=== PATIENT | female | born 1960 | race Caucasian/White ===

== ENCOUNTER → 2022-08-23 10:45 | Outpatient (BNVA) | payer OTHER, SELFPAY | PROVIDERS: PCP Internal Medicine; Visit Provider Physician Assistant Surgical | DX: Z13.89 Encounter for screening for other disorder (principal) ==

== ENCOUNTER → 2022-08-30 13:21 | Outpatient (BNVA) | payer OTHER, SELFPAY | PROVIDERS: PCP Internal Medicine; Visit Provider Physician Assistant Surgical | DX: Z13.89 Encounter for screening for other disorder (principal) ==

== ENCOUNTER 2022-09-02 08:29 | Outpatient (REF) | payer OTHER, SELFPAY ==
--- NOTE | ~2022-09-02 | XR_ITS ---
EXAMINATION: XR CHEST CLINICAL INFORMATION: Reason for Exam E66.01 - Morbid (severe) obesity due to excess calories COMPARISON: Chest radiograph 09/02/2022 TECHNIQUE: 2 views of the chest FINDINGS: Clear lungs. No pneumothorax or pleural effusion. Unchanged cardiomediastinal silhouette. XR/XR chest 2V IMPRESSION: * Clear lungs.
--- NOTE | 2022-09-02 08:38 | ECG_ITS ---
Test Reason : E66.01 Morbid Obesity Blood Pressure : / mmHG Vent. Rate : 083 BPM Atrial Rate : 000 BPM P-R Int : 000 ms QRS Dur : 088 ms QT Int : 376 ms P-R-T Axes : 000 033 000 degrees QTc Int : 441 ms Atrial fibrillation Abnormal ECG When compared with ECG of 24-APR-2019 11:22, No significant change was found Referred By: Uriel Guillen Electronically Signed By:ANANYA KERN MD
[2022-09-02 08:48] LABS: MANUAL DIFF FLAG NO
[2022-09-02 09:49] LABS: Basophils Absolute Auto 0.1 X10*3/uL (0.0-0.2); Basophils Percent Auto 0.9 % (0-2); Eosinophils Absolute Auto 0.1 X10*3/uL (0.0-0.4); Eosinophils Percent Auto 0.9 % (0-4); Hemoglobin 15.3 g/dl (12.0-16.0); Imm Gran Abs Auto 0.01 X10*3/uL (0.00-0.03); Imm Gran Pct Auto 0.2 % (0.0-0.4); Lymphocytes Absolute Auto 1.6 X10*3/uL (1.2-4.9); Mean Corpuscular Hemoglobin 31.4 pg (27.0-33.0); Mean Corpuscular Volume 92.2 fL (80.0-98.0); Mean Platelet Volume 9.4 fL (9.4-12.3); Monocytes Absolute Auto 0.4 X10*3/uL (0.1-1.2); Monocytes Percent Auto 7.3 % (2-11); Neutrophils Absolute Auto 3.7 x10*3/uL (2.0-8.3); Neutrophils Percent Auto 63.7 % (45-73); Platelet Count 272 X10*3/uL (160-400); Red Blood Count 4.88 X10*6/uL (4.20-5.50); Red Cell Distribution Width 12.2 % (11.0-16.0); White Blood Count 5.7 X10*3/uL (4.8-10.8)
[2022-09-02 10:49] LABS: Estimated Average Glucose 117 mg/dL; Hemoglobin A1C 150.1981 umol/L; Hemoglobin A1c % 5.7 %
[2022-09-02 11:10] LABS: Alanine Aminotransferase 37 U/L (0-31); Albumin Level 4.2 g/dL (3.5-5.0); Alkaline Phosphatase 81 U/L (39-117); Anion Gap 16 (12-20); Aspartate Amino Transferase 31 U/L (5-31); Bilirubin Total 0.7 mg/dL (0.0-1.0); Blood Urea Nitrogen 17 mg/dL (9-16); C Reactive Protein 0.27 mg/dL (< or = 0.50); Calcium 9.3 mg/dL (8.4-10.2); Carbon Dioxide 23 mmol/L (22-29); Chloride 108 mmol/L (96-108); Cholesterol 166 mg/dL; Estimated Glomerular Filt Rate > 60; Glucose Random 96 mg/dL (60-115); HDL Cholesterol 34 mg/dL; Iron 130 mcg/dL (30-160); LDL Cholesterol Calculated 112 mg/dl; Percent Iron Saturation 36 % (15-50); Potassium 4.5 mmol/L (3.3-5.1); Sodium 142 mmol/L (135-145); Total Iron Binding Capacity 361 mcg/dL (228-428); Triglycerides 103 mg/dL; Unsaturated Iron Binding 231 ug/dL
[2022-09-02 11:42] LABS: Ferritin 62 ng/mL (10-250); Folate 15.3 ng/mL (> or = 4.0); Insulin 8 uU/mL (2-29); TSH reflex Free T4 0.82 uIU/mL (0.32-4.0); Vitamin B12 > 2000 pg/mL (200-900); Vitamin D 25-OH Total 43.4 ng/mL (>30)
[2022-09-06 13:14] LABS: Calcium (PTHI) 9.5 mg/dL (8.6-10.4); PTHI 69 pg/mL (16-77)
[2022-09-06 21:19] LABS: Zinc 67 mcg/dL (60-130)
[2022-09-09 03:57] LABS: Vitamin A 46 mcg/dL (38-98)
[2022-09-11 15:38] LABS: Vitamin B1 8 nmol/L (8-30)
== END 2022-09-02 08:30 | disposition home or self-care (01) ==
LOC: HO.XRAY 08:29
PROVIDERS: PCP Internal Medicine; Visit Provider Physician Assistant Surgical
DX: E66.01 Morbid (severe) obesity due to excess calories (principal); I10 Essential (primary) hypertension
CPT/HCPCS: 36415; 71046; 80053; 80061; 82306; 82607; 82728; 82746; 83036; 83525; 83540; 83970; 84425; 84443; 84590; 84630; 85025; 86140; 93005

== ENCOUNTER → 2022-09-06 09:43 | Outpatient (BNVA) | payer OTHER, SELFPAY | PROVIDERS: PCP Internal Medicine; Visit Provider Physician Assistant Surgical | DX: Z13.89 Encounter for screening for other disorder (principal) ==

== ENCOUNTER → 2022-09-30 10:09 | Outpatient (BNVA) | payer OTHER, SELFPAY | PROVIDERS: PCP Internal Medicine; Visit Provider Dietitian, Registered | DX: E66.01 Morbid (severe) obesity due to excess calories (principal) | CPT/HCPCS: 97802 ==

== ENCOUNTER → 2022-10-04 08:26 | Outpatient (BNVA) | payer OTHER, SELFPAY | PROVIDERS: PCP Internal Medicine; Visit Provider Physician Assistant Surgical | DX: Z13.89 Encounter for screening for other disorder (principal) ==

== ENCOUNTER 2022-10-04 16:47 | Outpatient (REF) | payer OTHER, SELFPAY ==
[2022-10-07 15:06] LABS: H Pylori Breath Test Negative (Negative)
== END 2022-10-04 16:48 | disposition home or self-care (01) ==
LOC: HO.LNP 16:47
PROVIDERS: Visit Provider Physician Assistant Surgical
DX: E66.01 Morbid (severe) obesity due to excess calories (principal); I10 Essential (primary) hypertension; Z11.0 Encounter for screening for intestinal infectious diseases
CPT/HCPCS: 83013

== ENCOUNTER → 2022-10-06 13:19 | Outpatient (BNVA) | payer OTHER, SELFPAY | PROVIDERS: PCP Internal Medicine; Visit Provider Counselor Mental Health ==

== ENCOUNTER 2022-10-27 07:47 | Outpatient (REF) | payer OTHER, SELFPAY ==
--- NOTE | ~2022-10-27 | US_ITS ---
EXAMINATION: US COMPLETE ABDOMEN WITH LIVER ELASTOGRAPHY CLINICAL INFORMATION: Moderate/severe obesity COMPARISON: None available. TECHNIQUE: Real-time imaging of the abdominal viscera. Noninvasive ultrasound liver fibrosis assessment is performed using Jose ElastPQ point quantification shear wave elastography (2D-SWE) with a C5-2 MHz transducer. Multiple elastography samples are obtained. FINDINGS: PANCREAS: Normal. The visualized pancreatic head and body are normal in appearance. The remainder of the pancreas is obscured from visualization by the overlying bowel gas. ABDOMINAL AORTA: The proximal, middle, and distal aortic segments are normal in caliber. INFERIOR VENA CAVA: Visualized portions are normal. LIVER: The liver demonstrates normal size, contour and increased echogenicity. No focal lesion or intrahepatic biliary duct dilatation. The right lobe measures 17.8 cm in length. The left lobe measures 12.0 cm in length. Portal flow is hepatopedal Shear wave liver elastography median stiffness is 1.17 m/s (reference: normal median stiffness is 1.3 m/s or less). IQR/median stiffness to assess sampling precision is 0.07 (reference: good quality data set is IQR/median stiffness of 0.15 or less). GALLBLADDER: Normal. The gallbladder is physiologically distended without evidence of stones, sludge, polyps, wall thickening or pericholecystic fluid. COMMON BILE DUCT: Normal in caliber measuring 0.23 cm in diameter. RIGHT KIDNEY: No hydronephrosis. No renal calculi or focal parenchymal lesions. The kidney measures 12.7 cm in maximum dimension. There is an upper pole echogenic lesion measuring 1.6 x 1.4 x 1.0 cm suggestive of developing 1. A second echogenic lesion in the lower pole measures 0.5 x 0.4 x 0.5 cm. 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 LEFT KIDNEY: . No hydronephrosis. No renal calculi visualized. There are 2 echogenic lesions consistent with angiomyolipoma. Lower pole lesion measures 1.6 x 1.0 cm. An upper pole lesion measures 1.4 x 1.7 x 0.8 cm. The kidney measures 13.1 cm in maximum dimension. SPLEEN: Normal. The spleen measures 10.3 cm in maximum dimension. FREE FLUID: None. US/US abdomen comp w elastography IMPRESSION: 1. Bilateral renal angiomyolipoma. No echogenic stones or hydronephrosis. Mild hepatic steatosis. No focal lesion seen. 2. Liver elastography: Median liver stiffness measures 1.17 m/s suggestive of high probably normal. REFERENCE: Society of Radiologists in Ultrasound Liver Stiffness Thresholds (2020): LIVER STIFFNESS THRESHOLDS: *Liver Stiffness equal or less than 1.3 m/s: High probability of being normal. *Liver Stiffness less than 1.7 m/s: In the absence of other known clinical signs, rules out compensated advanced chronic liver disease. *Liver Stiffness 1.7-2.1 m/s: Suggestive of compensated advanced chronic liver disease but need further test for confirmation. *Liver Stiffness over 2.1 m/s: Rules in compensated advanced chronic liver disease. *Liver Stiffness over 2.4 m/s: Suggestive of clinically significant portal hypertension. QUALITY OF DATA SET: *IQR/Median value equal or less than 0.15 implies a quality data set. *IQR/Median value over 0.15 implies a poor quality data set. SIGNIFICANT CHANGE FROM PRIOR EXAM: Significant change if liver stiffness measurement is 10% or greater from prior exam. OTHER CONSIDERATIONS: The stage of liver fibrosis may be overestimated in the setting of acute hepatitis, liver inflammation, elevated liver function tests, hepatic vascular congestion, obstructive cholestasis, non-fasting state, and infiltrative diseases such as amyloidosis and lymphoma. In some patients with NAFLD, the liver stiffness thresholds for compensated advanced chronic liver disease may be lower. In causes other than viral hepatitis and NAFLD, liver stiffness thresholds are not well established.
--- NOTE | ~2022-10-27 | FL_ITS ---
EXAMINATION: XR FLUOROSCOPY UPPER GI WITH AIR CLINICAL INFORMATION: Morbid obesity. COMPARISON: None available. TECHNIQUE: Air-contrast upper GI examination. FINDINGS: There is normal elevation of the soft palate while saying candy. There is normal apposition of the vocal cords while saying E. Patient swallowed a combination of thin and thick barium as well as half-inch diameter barium tablet without difficulty. No nasopharyngeal reflux or tracheal aspiration identified. There is normal esophageal motility without persistent stricture or mucosal abnormality. No hiatal hernia was seen. There is normal motility. There was noted to be spontaneous gastroesophageal reflux to the level of the soledad which cleared rapidly. The stomach demonstrates normal distensibility without abnormal mass or ulceration. There was no delay in gastric emptying. The duodenal bulb and sweep appeared unremarkable. FLUOROSCOPY TIME: 1.5 minutes NUMBER OF IMAGES: 15 22.199 Gy-cm2 (flores-centimeter squared) FL/FL upper GI w air IMPRESSION: Essentially unremarkable air-contrast upper GI examination other than for transient spontaneous gastroesophageal reflux.
== END 2022-10-27 07:48 | disposition home or self-care (01) ==
LOC: HO.US 07:47
PROVIDERS: PCP Internal Medicine; Visit Provider Physician Assistant Surgical
DX: Z01.818 Encounter for other preprocedural examination (principal); E66.01 Morbid (severe) obesity due to excess calories; I10 Essential (primary) hypertension; K21.9 Gastro-esophageal reflux disease without esophagitis
CPT/HCPCS: 74246; 76705; 76981

== ENCOUNTER → 2022-11-10 08:13 | Outpatient (BNVA) | payer OTHER, SELFPAY | PROVIDERS: PCP Internal Medicine; Visit Provider Surgery | DX: Z13.89 Encounter for screening for other disorder (principal) ==

== ENCOUNTER → 2022-11-12 12:45 | Outpatient (BNVA) | payer OTHER, SELFPAY | PROVIDERS: PCP Internal Medicine; Visit Provider Surgery | DX: Z13.89 Encounter for screening for other disorder (principal) ==

== ENCOUNTER 2022-11-16 09:56 | Inpatient (IN) | payer OTHER, SELFPAY ==
[2022-11-10 15:39] VITALS: BMI 48.5
[2022-11-12 12:47] LABS: MANUAL DIFF FLAG NO
[2022-11-12 13:19] LABS: Estimated Average Glucose 111 mg/dL; Hemoglobin A1C 151.9529 umol/L; Hemoglobin A1c % 5.5 %
[2022-11-12 13:21] LABS: Basophils Percent Auto 0.8 % (0-2); Eosinophils Percent Auto 0.8 % (0-4); Hematocrit 46.3 % (37.0-47.0); Hemoglobin 15.6 g/dl (12.0-16.0); Imm Gran Abs Auto 0.02 X10*3/uL (0.00-0.03); Imm Gran Pct Auto 0.4 % (0.0-0.4); Lymphocytes Absolute Auto 1.5 X10*3/uL (1.2-4.9); Lymphocytes Percent Auto 28.1 % (20-40); Mean Corpuscular HGB Conc 33.7 g/dl (31.0-35.0); Mean Corpuscular Hemoglobin 31.6 pg (27.0-33.0); Mean Corpuscular Volume 93.7 fL (80.0-98.0); Mean Platelet Volume 9.7 fL (9.4-12.3); Monocytes Absolute Auto 0.4 X10*3/uL (0.1-1.2); Monocytes Percent Auto 6.8 % (2-11); Neutrophils Absolute Auto 3.4 x10*3/uL (2.0-8.3); Neutrophils Percent Auto 63.1 % (45-73); Platelet Count 244 X10*3/uL (160-400); Red Blood Count 4.94 X10*6/uL (4.20-5.50); White Blood Count 5.3 X10*3/uL (4.8-10.8)
[2022-11-12 13:24] LABS: INTERNATIONAL NORM RATIO 1.1 (0.9-1.1); Prothrombin Time 12.7 SEC (10.0-13.1)
[2022-11-12 13:26] LABS: Partial Thromboplastin Time 36.3 SEC (26.0-36.4)
[2022-11-12 13:42] LABS: Alanine Aminotransferase 26 U/L (0-31); Alkaline Phosphatase 77 U/L (39-117); Anion Gap 12 (12-20); Aspartate Amino Transferase 24 U/L (5-31); Bilirubin Total 0.7 mg/dL (0.0-1.0); Blood Urea Nitrogen 20 mg/dL (9-16); C Reactive Protein 0.24 mg/dL (< or = 0.50); Calcium 9.5 mg/dL (8.4-10.2); Carbon Dioxide 25 mmol/L (22-29); Chloride 109 mmol/L (96-108); Cholesterol 139 mg/dL; Creatinine Clr Calc Pharmacy 77.3; Estimated Glomerular Filt Rate > 60; Glucose Random 90 mg/dL (60-115); HDL Cholesterol 30 mg/dL; LDL Cholesterol Calculated 93 mg/dl; Potassium 4.5 mmol/L (3.3-5.1); Sodium 141 mmol/L (135-145); Total Protein 6.7 g/dL (6.5-8.0); Triglycerides 81 mg/dL
[2022-11-12 13:58] LABS: Insulin 6 uU/mL (2-29); TSH reflex Free T4 0.89 uIU/mL (0.32-4.0)
--- NOTE | 2022-11-15 10:48 | P.CONAN_ITS ---
HPI - Anesthesia Eval Consult details Narrative: 62yo F for Gastrectomy Sleeve EGD,poss Diaphragmatic hernia, poss ventral hernia,poss open Cardiac cleared Afib, no anticoag (asa only). Arixtra preop by bariatrics [facility] Active Problems Active Problems: All Active Problems (Updated 11/10/22 @ 15:37 by Kianna Manjarrez, RN) Morbid obesity (Acute) ANALI (obstructive sleep apnea) (Acute) HTN (hypertension) (Acute) Atrial fibrillation (Acute) Adjustment disorder, unspecified (Acute) Abnormal EKG (Acute) Past Medical History Medical History (Updated 11/10/22 @ 15:37 by Kianna Manjarrez, MICHAEL) Abnormal EKG Atrial fibrillation Dilation of thoracic aorta Fatty liver On beta julia at home ANALI on CPAP Family History Family History Mother No problems noted. Father Pacemaker Son No problems noted. Surgical History Surgical History History of carpal tunnel release of both wrists History of lumpectomy of right breast Hx of section Hx of colonoscopy Hx of tooth extraction Social History Social History Are you a primary pediatric care coordinator to a significant other at home: No Do you presently have visiting nurse or other home services: No Alcohol intake: never Patient Tobacco Use Status: Former Tobacco user Quit Date: teenager Tobacco use type: Cigarette Use of substances other than those prescribed or required for medical reasons: No Have you been hit, kicked, punched, or otherwise hurt by someone within the past year? If so, by whom?: No Are you DNR?: No Advance Directives: No Advance Directives Information Provided: Yes (ARSLAN Mandujano) Advance Directives on File: No Recently lost weight without trying: No How much weight loss: 34pounds or more Eating poorly because of decreased appetite: No Nutrition screen score: 4 Nutrition Risks: No Nutritional Risk Patient : No Poor oral hygiene: No (Intact teeth) Meds Allergies Allergy/AdvReac Type Severity Reaction Status Date / Time No Known Allergies Allergy Verified 11/10/22 13:25 Home Medications Medication Instructions Recorded Confirmed Last Taken Type CPAP (CPAP Machine/Device) 08/23/22 11/10/22 Unknown History aspirin 325 mg tablet 324 mg PO DAILY 08/23/22 11/10/22 11/10/22 History cyanocobalamin (vitamin B-12) 1,000 mcg PO DAILY 08/23/22 11/10/22 11/15/22 History 1,000 mcg capsule metoprolol tartrate 25 mg tablet 25 mg PO DAILY 08/23/22 11/10/22 11/16/22 History pravastatin 40 mg tablet 40 mg PO DAILY 08/23/22 11/10/22 11/15/22 History cholecalciferol (vitamin D3) 50 50 mcg PO 3XW 10/04/22 11/10/22 11/15/22 History mcg (2,000 unit) capsule Exam Exam Date and Time: November 15, 2022 1048 Height,Weight and Vital Signs: Height 5 ft 1 in Weight 116.573 kg Pertinent Lab Results Pertinent Lab Results: Laboratory Tests 11/12/22 11/12/22 11/12/22 12:40 12:45 12:45 WBC 5.3 RBC 4.94 Hgb 15.6 Hct 46.3 MCV 93.7 MCH 31.6 MCHC 33.7 RDW 13.0 Plt Count 244 MPV 9.7 Immature Gran % (Auto) 0.4 Neut % (Auto) 63.1 Lymph % (Auto) 28.1 [place] % (Auto) 6.8 Eos % (Auto) 0.8 Baso % (Auto) 0.8 Lymph # (Auto) 1.5 [place] # (Auto) 0.4 Eos # (Auto) 0.0 Baso # (Auto) 0.0 Abs Immat Gran (auto) 0.02 Absolute Neuts (auto) 3.4 Absolute Nucleated RBC 0.000 Nucleated RBC % (auto) 0.0 PT 12.7 INR 1.1 APTT 36.3 Sodium Potassium Chloride Carbon Dioxide Anion Gap BUN Creatinine Estim Creat Clear Calc Estimated GFR Random Glucose Estimat Average Glucose Hemoglobin A1c % Insulin Level Calcium Total Bilirubin AST ALT Alkaline Phosphatase C-Reactive Protein Total Protein Albumin Triglycerides Cholesterol LDL Cholesterol, Calc HDL Cholesterol TSH Blood Type A Positive Antibody Screen NEGATIVE 11/12/22 11/12/22 12:45 12:45 WBC RBC Hgb Hct MCV MCH MCHC RDW Plt Count MPV Immature Gran % (Auto) Neut % (Auto) Lymph % (Auto) [place] % (Auto) Eos % (Auto) Baso % (Auto) Lymph # (Auto) [place] # (Auto) Eos # (Auto) Baso # (Auto) Abs Immat Gran (auto) Absolute Neuts (auto) Absolute Nucleated RBC Nucleated RBC % (auto) PT INR APTT Sodium 141 Potassium 4.5 Chloride 109 H Carbon Dioxide 25 Anion Gap 12 BUN 20 H Creatinine 0.92 Estim Creat Clear Calc 77.3 Estimated GFR > 60 Random Glucose 90 Estimat Average Glucose 111 Hemoglobin A1c % 5.5 Insulin Level 6 Calcium 9.5 Total Bilirubin 0.7 AST 24 ALT 26 Alkaline Phosphatase 77 C-Reactive Protein 0.24 Total Protein 6.7 Albumin 4.0 Triglycerides 81 Cholesterol 139 LDL Cholesterol, Calc 93 HDL Cholesterol 30 TSH 0.89 Blood Type Antibody Screen Narrative Narrative: EKG 08/2022 Vent. Rate : 083 BPM ? ? Atrial Rate : 000 BPM ?? P-R Int : 000 ms? QRS Dur : 088 ms ? ? QT Int : 376 ms ? ? ? P-R-T Axes : 000 033 000 degrees ?? QTc Int : 441 ms ? Atrial fibrillation Abnormal ECG When compared with ECG of 24-APR-2019 11:22, No significant change was found ECHO 02/2022 LVEF 65-70% Trace tricuspid regurg Nml RV systolic pressures Proximal ascending aorta nml @ 3.5cm Assessment and Plan Assessment Anesthesia Assessment: Chart Reviewed
[2022-11-15 14:44] LABS: COVID-19 Test Negative (Negative); IDNOW Serial# 08D9AD1C
[2022-11-16] VITALS (9 sets, daily range): BP systolic 97–136; BP diastolic 59–75; PULSE 71–98; RESP 16–18; TEMP 36.1–36.9; O2SAT 95–99
--- NOTE | 2022-11-16 10:04 | PHA.MEDREC ---
Pharmacy Consult ? Medication Reconciliation Pharmacy has completed the medication reconciliation. Reviewed med rec done by nursing
[2022-11-16] MEDS: Lactated Ringers 1,000 ML 100 ML IVCONT (10:26)
[2022-11-16] MEDS: Aprepitant 32 MG/4.4 ML VIAL IVPUSH (10:26)
--- NOTE | 2022-11-16 11:33 | P.BOP_ITS ---
Brief Operative Note Date of Service: 11/16/22 Pre-op diagnosis: Morbid obesity with comorbidities (see below) Post-op diagnosis: same (& congenital adhesions) Procedure: INITIAL PATIENT BMI ON PRESENTATION AT OUR OFFICE: 54.6 kg/m2 LAST BMI BEFORE SURGERY: 48.7 kg/m2 COMORBIDITIES: sleep apnea on CPAP, hypertension, atrial fibrilation, hyperlipidemia, GERD, liver steatosis, renal angiolipoma, atrial dilation ?The patient presented to the Weight Management Program with significant obesity that was negatively impacting the patient's comorbidities as listed above.? The program is a phased program with a special focus on preoperative medical weight management to promote substantial weight loss and prepare the patients for the second phase of the program: bariatric surgery. The patient participated in an intensive weekly lifestyle ?intervention and exercise program during which the patient ?has lost between the initial office visit and the last preoperative visit 31.2lbs, or 10.8% of initial actual body weight. It was deemed appropriate for the patient to now have bariatric surgery. In light of the current Covid-19 pandemic and the well documented strong association of obesity and increased risk of worse outcomes if infected with Covid-19 (REFERENCES: https://pubmed.ncbi.nlm.nih.gov/23707799/ ,? https://pubmed.ncbi.nlm.nih.gov/69540712/ ), any delay in undergoing bariatric surgery may lead to the patient's worsening health condition and increased?risk of more severe Covid-19 disease if infected. In addition a recent?study from [facility] published in [facility] on 07/20/2021 ([email or web address]) found that, among patients with obesity, substantial weight loss achieved with surgery was associated with improved outcomes of COVID-19 infection. The findings suggest that obesity can be a modifiable risk factor for the severity of COVID-19 infection. In addition, the patient met the BMI-criteria for bariatric surgery based on the BMI on initial presentation. The patient should not be penalized for achieving such weight loss because ?it is not sustainable long-term without surgical intervention and it was achieved in preparation for bariatric surgery ?under my direction and based on my published research ([email or web address]).[email or web address] and? http s://www.soard.org/article/[email or web address](50)49532-X/pdf ) ?that a 10% preoperative weight loss improves long-term weight loss after surgery and reduces perioperative complications.? Insurance carriers such as [facility] have endorsed my recommendations ?and have included in their policies criteria to include a 10% preoperative weight loss requirement. PROCEDURE: Esophago-gastroscopy, laparoscopic lysis of adhesions, laparoscopic sleeve gastrectomy and laparoscopic gastropexy INDICATIONS: This is a 62 year-old female who was electively scheduled for laparoscopic, possibly open sleeve gastrectomy. The risks and complications of the procedure were discussed with the patient in advance, particularly the possibility of ; pulmonary embolism; staple line leak; bleeding; GERD; cardiac, pulmonary, or renal complications; as well as long-term problems such as insufficient weight loss, vitamin deficiency, strictures, or ulcers. The patient understood all the risks, and was in agreement to proceed with surgery. DESCRIPTION OF PROCEDURE: After informed consent was obtained from the patient, the patient was given preoperative antibiotics, and was transferred to the operating room. After s uccessful induction of general anesthesia, pneumatic compression devices were placed on both lower extremities. An upper endoscopy was performed next. The oropharynx and esophagus appeared to be within normal limits. There was no diaphragmatic hernia present consistent with the findings of the preoperative upper GI. The stomach was entered. Then after all fluid and air were suctioned and the stomach was fully decompressed, the scope was withdrawn and secured in the mid esophagus. The patient was then prepped and draped in the usual sterile manner, and abdominal access was established at the right upper quadrant with the Alyssa technique. A 12 mm blunt port was inserted, and the abdomen was insufflated with CO2 to a pressure of 15 mmHg. Under direct visualization, additional ports were placed, specifically two 5 mm Versi-step ports to the left upper quadrant, and a 5 mm Versi-Step port to the right upper quadrant. 1% lidocaine plain was used to infiltrate all port sites as well as all fascia defects. Using the EndoClose suture passer device, I placed a #1 Polysorb tie across the falciform ligament in order to retract it up against the abdominal wall and prevent injury of the ligament with our instruments during the procedure. Following that, the patient was placed in a steep reverse Trendelenburg position. An additional 5 mm port was placed to the right flank for the Mediflex retractor that was used to retract the left lobe of the liver. The gastro-esophageal fat pad was opened with the ultrasonic device (Thunderbeat, Olympus) and the anterior esophagus and hiatus were exposed. The angle of His was opened with the ultrasonic device the fundus of the stomach from any diaphragmatic and splenic attachments. I then opened the gastrocolic ligament between the transverse colon and the greater curvature of the stomach with the ultrasonic device to enter the lesser sac and facilitate the ligation of the short gastric vessels. I started at a mid-point along the greater curvature and using the Thunderbeat, all short gastric vessels were divided all the way to the angle of His until the left lorenzo was completely dissected at its entirety. I then divided the gastro-colic ligament distally to a distance of about 3-4 cm proximal to the pylorus. There were extensive congenital adhesions between the pancreas and posterior gastric wall. Those were lysed completely with the ultrasonic device. Adhesiolysis took approximately 60 min to complete. The stomach was then divided transversely with one Endo AMELIA-45 purple, two AMELIA- 45 orange loads and four AMELIA-60 articulating orange loads using the AEON stapler and loads. Every effort was made that the gastric sleeve had a tubular shape and an even caliber throughout. Once the sleeve resection was completed, the staple line of the gastric sleeve was reinforced with Hemoclips. The resected stomach was retrieved without difficulty from the Alyssa port. A gastropexy was then performed in order to prevent postoperative GERD and partial gastric volvulus. Several interrupted 2.0 Surgidac sutures were placed between the sleeve's staple line and the previously divided greater omentum and gastro-colic ligament using the Endo-Stitch device. ?An upper endoscopy was performed. There was no narrowing at the GE junction. The scope was easily advanced all the way to the pylorus which was clearly visualized. There was no narrowing anywhere and the sleeve's caliber was even throughout. The sleeve's staple line was inspected and there was no evidence of ischemia, bleeding or dehiscence. At that point the gastroscope was withdrawn from the patient?s mouth while we were decompressing the bowel and the stomach from any remaining air. I looked into the lesser sac to see how the sleeve was situating and it was situating well. There was no bleeding from the staple line, spleen, or short gastric vessels. The Mediflex retractor was removed, and the undersurface of the liver was inspected and there was no bleeding. The patient was placed in supine position. I closed the fascial defect of the 12 mm port site with a figure of eight #1 Polysorb suture. Then 30cc Ropivacaine plain with 10 mg of Dexamethasone were used to infiltrate the fascial closure as well as all skin incisions. A total of 7ml Zynrelef was applied in the Alyssa wound. At this point, the abdomen was deflated, all ports were removed under direct vision, and no bleeding was noted from any of the port sites. The skin incisions were irrigated with saline and were closed with 4-0 absorbable monofilament sutures. Steri-Strips and OpSites were used to cover all incisions. The patient was extubated and was transferred in stable condition to the recovery room for further care. I was present and performed all jj parts of the procedure. Vishal was the journeyman operator assistant. There were no residents to assist with this case. Kaiden Flannery MD, PhD, FACS Surgeon: Simon Flannery MD Anesthesia: GETA, local and other (TAP block and 7ml Zynrelef) Was an Seed Core Operator used for this Procedure?: No Seed Core Operator: Michelle Rodgers Estimated blood loss (mL): 10 IV fluids (mL): 2,400 Urine output (mL): 0 (No Jimenez to record output) Pathology: other (Stomach) Condition: stable Disposition: PACU
--- NOTE | 2022-11-16 11:39 | PM.PNGS ---
Subjective Subjective Date of Service: 11/17/22 Interval history: Feels well. Mild incisional pain. She is tolerating phase 1 bariatric diet Physical Exam Vital Signs: Vital Signs: Last Vital Signs Temp 97.2 F 11/16/22 10:10 Pulse 98 11/16/22 10:10 Resp 16 11/16/22 10:10 BP 129/75 11/16/22 10:10 Pulse Ox 95 11/16/22 10:10 O2 Del Method Room Air 11/16/22 10:10 BMI result Body Mass Index 48.5 GI: Inspection: Yes normal to inspection, Yes incision (clean, dry and intact) and Yes obesity Palpation (GI): Soft to palpation Extrem: Right lower extremity: normal to inspection (no calf tenderness) Left lower extremity: normal to inspection (no calf tenderness) Objective Data Active Medications Lactated Ringer's (Lr) 1,000 mls @ 100 mls/hr IVCONT .Q10H FELECIA Last Admin: 11/16/22 10:26 Dose: 100 mls/hr Documented By: KHUSHBU Labs 11/12/22 12:45 11/12/22 12:45 Labs: Laboratory Results - last 24 hr 11/15/22 14:10 COVID-19 ([facility]) Negative COVID-19 Clin Com See Note Procedures Date of Service Date of Service: 11/17/22 Progress Note: A&P Assessment and plan (1) Morbid obesity: Status: Acute Assessment and Plan: s/p laparoscopic sleeve gastrectomy, lysis of adhesions and gastropexy Doing well Will check am labs and if OK the patient will be discharged home (2) HTN (hypertension): Status: Acute (3) Atrial fibrillation: Status: Acute (4) GERD (gastroesophageal reflux disease): Status: Acute (5) ANALI on CPAP: Status: Acute (6) Renal angiolipoma: Status: Acute (7) Hyperlipidemia: Status: Acute (8) S/P laparoscopic sleeve gastrectomy: Status: Acute (9) Congenital intra-abdominal adhesions: Status: Acute Time Spent With Patient Time: Total time managing care of this patient today ____ minutes. Quality Stroke Does the patient have a stroke diagnosis?: No VTE Prior VTE?: No VTE Risk Level:: Surgical - moderate VTE Device Contraindication: N/A - Device Ordered VTE Drug Contraindication: Treatment Not Indicated
--- NOTE | 2022-11-16 11:55 | P.DS_ITS ---
DS: Providers Provider Date of Service: 11/17/22 Date of admission: 11/16/22 09:56 Primary care physician: Sidney Marte MD DS: Diagnosis Discharge Diagnosis (1) Morbid obesity: Status: Acute (2) HTN (hypertension): Status: Acute (3) Atrial fibrillation: Status: Acute (4) GERD (gastroesophageal reflux disease): Status: Acute (5) ANALI on CPAP: Status: Acute (6) Renal angiolipoma: Status: Acute (7) Hyperlipidemia: Status: Acute DS: Summary Hospital Course Hospital Course: ADMITTING DIAGNOSIS: morbid obesity, HTN, AFIB, ANALI, Renal angiolipoma, GERD DISCHARGE DIAGNOSIS: same, s/p laparoscopic sleeve gastrectomy PAST SURGICAL HISTORY: section PROCEDURE: upper endoscopy, laparoscopic sleeve gastrectomy DISCHARGE SUMMARY: History of Present Illness: The patient is a 62 year-old woman with a BMI of 54.6 kg/m2 and associated co- morbidities as described above. The patient had extensive work-up, lost 31.2 lbs preoperatively and was electively scheduled for laparoscopic, possible open sleeve gastrectomy and gastropexy. Risks and complications of the surgery were discussed with the patient in advance, particularly the possibility of , pulmonary embolism, anastomotic leak, bleeding, bowel injury, GERD, cardiac, renal or pulmonary complications. The patient understood all the risks and was in agreement with the surgical plan. Hospital Course: The patient underwent an uneventful laparoscopic sleeve gastrectomy with gastropexy on the day of admission. Postoperatively, the patient was transferred to the surgical floor. The patient received IV Acetaminophen and IV dilaudid for pain control. Patient was started on bariatric phase 1 diet POD #0. On postoperative day one, the patient was feeling well without nausea, vomiting, fevers, or tachycardia. The patient had some mild incisional pain and the abdomen was soft. On the morning of postoperative day one, the patient was continued on 1 ounce of water or ice every half hour. During the day, the patient did fairly well, mock ving some incisional pain, but able to ambulate adequately and to tolerate liquids well. Since the patient is doing well, we decided that the patient was ready to be discharged. The patient was given instructions to follow-up with me next week and to call my office for any fever over 101, persistent abdominal pain, nausea, vomiting, GERD, symptoms of DVT such as calf tenderness, or leg swelling, or pulmonary embolism such as chest pain or shortness of breath. The patient was also instructed to drink 40-60 ounces of liquids per day using the 1-ounce cups. The patient had been given prescriptions for Tylenol for pain, Zofran prn for nausea, and pantoprazole and carafate previously. The patient was encouraged to ambulate and use the incentive spirometer. The patient was allowed to shower, but no baths, and encouraged to stay active at home. All of these instructions were given to the patient personally. All questions were answered and the patient understood all instructions, the instructions were also given to the patient in print. Time Spent with Patient Time attestation: Total time managing care of this patient today ____ minutes. Discharge coordination time: Less than 30 minutes Quality: Safe Use of Opioids Does Pt have an Active Cancer Diagnosis on the Problem List?: No Quality: Stroke Does the patient have a stroke diagnosis?: No Physical Exam Vital Signs: Vital Signs: Last Vital Signs Temp 97.2 F 11/16/22 10:10 Pulse 98 11/16/22 10:10 Resp 16 11/16/22 10:10 BP 129/75 11/16/22 10:10 Pulse Ox 95 11/16/22 10:10 O2 Del Method Room Air 11/16/22 10:10 BMI result Body Mass Index 48.5 DS: Data Data Completed and Pending Labs on day of discharge: Laboratory Results - last 24 hr 11/15/22 14:10 COVID-19 ([facility]) Negative COVID-19 Clin Com See Note Discharge Plan Discharge Anticipated Discharge Date/Time: 11/17/22 10:53 Patient Disposition: Home, Self-Care Discharge Diagnosis: s/p sleeve gastrectomy Referrals: Sidney Marte MD [Primary Care Provider] - 1 Week Discharge Medications: New clopidogrel [Plavix] 75 mg tablet 75 mg PO .COMPLEX Qty: 30 2RF Rx Instructions: 75 mg orally one per day; clotrimazole 1 % Cream 1 appl topical BID Qty: 90 2RF Protocol: Apply to: Apply to: see above Continued pantoprazole 40 mg tablet,delayed release (DR/EC) 40 mg PO DAILY Qty: 90 0RF (DME) CPAP Machine/Device Device See Rx Instructions .Route Rx Instructions: As directed metoprolol tartrate 25 mg tablet 25 mg PO DAILY pravastatin 40 mg tablet 40 mg PO DAILY sucralfate 100 mg/mL suspension 10 ml PO BID Qty: 400 2RF ondansetron 4 mg tablet,disintegrating 4 mg PO Q12H Qty: 20 0RF Rx Instructions: Only take one every 12 hours as needed if you have nausea fondaparinux 2.5 mg/0.5 mL syringe 2.5 mg subcut Q24H Qty: 5 1RF Discontinued aspirin 325 mg tablet 324 mg PO DAILY cyanocobalamin (vitamin B-12) 1,000 mcg capsule 1,000 mcg PO DAILY cholecalciferol (vitamin D3) 50 mcg (2,000 unit) capsule 50 mcg PO 3XW Discharge Orders: Discharge Order (Routine); Ordered 11/17/22 Ordered By: Simon Flannery Activity on Discharge: No heavy lifting Stand Alone Forms: Patient Portal Discharge page Care Plan Goals: weight loss Health Concerns: morbid obesity Plan of Treatment: No tub baths, sex or returning to work until discussed at first post op appointment. No exercise, alcohol, tobacco or illegal drug use. Continue to use incentive spirometer hourly while awake. Walk in home for 5- 10 minutes every 2 hours during the first week. Continue phase 1 diet today and start phase 2 diet tomorrow morning. Follow all instructions in the bariatric handbook and call with any questions. 1. Please call your doctor or come back to the emergency room should any new symptoms arise. 2. You will receive a courtesy call from [facility] 24-48 hours after discharge. 3. Activity: abstain from alcohol, practice limited stair climbing, no bending, no driving, no exercise, no illicit substances, no lifting, no sex, no tub bath, no work. 4. Diet: continue as discussed with bariatric team.. 5. Dressing Change/Wound Care: Do not change or remove surgical dressings unless they are wet or soiled. 6. Call your doctor if: - Your temperature exceeds 101.5 F - You experience excessive pain or swelling - You have an unexpected reaction to medication - You have excessive bleeding - You experience continued vomiting/nausea - Your incision begins to separate - Your incision shows signs of infection such as increased redness, swelling, excessive pain, heat, or drainage (light blood or clear fluid is normal) 7. General instructions: No lifting greater than 5 lbs for the next 4 weeks[address] within 24 hours of taking narcotic pain medications. If you do not move your bowels in the next 2 days, please take milk of magnesia over the counter. Please follow the post op diet and do not advance your diet until you are seen in the office in about 2 weeks. Please walk around your home every hour or two to prevent blood clots from forming in your legs. You do not need to wake from sleeping to walk. Please sleep in a bed or couch to prevent kinking at the hips and knees. Please take your incentive spirometer (your [place] records management officer) home with you and use it for the next few days to prevent pneumonias. You may shower, no hot tubs, baths or swimming pools. Please call the office with any questions or concerns such as increasing abdominal pain, fever, chills, shortness of breath, chest pain, leg pain or swelling, or redness or drainage from your incisions. Do not hesitate to contact the office with any questions at . The patient's medical history has been reviewed and they are considered low risk for post op DVT and therefore DVT prophylaxis is not considered necessary. Travel after surgery was reviewed. The patient has not disclosed any travel plans during the first 30 days after surgery and they have been advised that within the first 30 days after surgery any bus, plane, train or car travel over 2 hours in duration is contraindicated due to the possibility of developing blood clots from immobility. Any travel, needs to include periods of ambulation of 10 minutes in duration every 2 hours. The patient was instructed to discuss any plans for travel during this period with their bariatric surgeon. Assessment: stable, post op sleeve gastrectomy
[2022-11-16 15:51] LABS: Hematocrit 45.6 % (37.0-47.0); Hemoglobin 15.2 g/dl (12.0-16.0)
[2022-11-16 16:01] LABS: Anion Gap 14 (12-20); Blood Urea Nitrogen 18 mg/dL (9-16); Carbon Dioxide 23 mmol/L (22-29); Chloride 107 mmol/L (96-108); Creatinine Clr Calc Pharmacy 74.8; Estimated Glomerular Filt Rate > 60; Glucose Random 116 mg/dL (60-115); Potassium 4.4 mmol/L (3.3-5.1); Sodium 140 mmol/L (135-145)
[2022-11-16] MEDS: ondansetron HCL 4 MG/2 ML VIAL IVPUSH ×2 (16:03→22:48)
[2022-11-16] MEDS: ceFAZolin Sodium/Dextrose,Iso 2 GM/50 ML PIGGYBACK IV (17:16)
[2022-11-16] MEDS: Acetaminophen 1,000 MG/100 ML PIGGYBACK 16.7 MG IV ×2 (18:00→22:48)
[2022-11-16] MEDS: Clotrimazole 1 % Cream 15 GM TUBE 1 APPL TOPICAL (20:08)
[2022-11-16] MEDS: Famotidine/PF 20 MG/2 ML VIAL IVPUSH (21:22)
[2022-11-16] MEDS: 0.9 % Sodium Chloride Flush 3 ML SYRINGE IVFLUSH (21:23)
[2022-11-16] MEDS: Artificial Tears 15 ML DROPS 2 DROP EYE-LEFT (21:38)
[2022-11-17 03:29] VITALS: BP 118/72; PULSE 89; RESP 16; TEMP 36; O2SAT 98
[2022-11-17] MEDS: Lactated Ringers 1,000 ML 80 ML IVCONT (04:21)
[2022-11-17] MEDS: Acetaminophen 1,000 MG/100 ML PIGGYBACK 16.7 MG IV (04:22)
[2022-11-17] MEDS: Artificial Tears 15 ML DROPS 2 DROP EYE-LEFT (06:32)
[2022-11-17 06:36] LABS: MANUAL DIFF FLAG NO
[2022-11-17 07:01] LABS: Basophils Percent Auto 0.1 % (0-2); Imm Gran Abs Auto 0.03 X10*3/uL (0.00-0.03); Imm Gran Pct Auto 0.4 % (0.0-0.4); Lymphocytes Absolute Auto 0.8 X10*3/uL (1.2-4.9); Lymphocytes Percent Auto 11.3 % (20-40); Mean Corpuscular HGB Conc 33.3 g/dl (31.0-35.0); Mean Corpuscular Hemoglobin 31.3 pg (27.0-33.0); Mean Platelet Volume 9.8 fL (9.4-12.3); Monocytes Absolute Auto 0.4 X10*3/uL (0.1-1.2); Monocytes Percent Auto 5.3 % (2-11); Neutrophils Absolute Auto 6.1 x10*3/uL (2.0-8.3); Neutrophils Percent Auto 82.9 % (45-73); Platelet Count 206 X10*3/uL (160-400); Red Blood Count 4.47 X10*6/uL (4.20-5.50); Red Cell Distribution Width 12.8 % (11.0-16.0); White Blood Count 7.4 X10*3/uL (4.8-10.8)
[2022-11-17 07:20] LABS: Anion Gap 16 (12-20); Blood Urea Nitrogen 17 mg/dL (9-16); Calcium 8.7 mg/dL (8.4-10.2); Carbon Dioxide 20 mmol/L (22-29); Chloride 109 mmol/L (96-108); Creatinine Clr Calc Pharmacy 92.3; Estimated Glomerular Filt Rate > 60; Glucose Random 108 mg/dL (60-115); Potassium 4.3 mmol/L (3.3-5.1); Sodium 141 mmol/L (135-145)
[2022-11-17 07:30] VITALS: BP 100/60; PULSE 80; RESP 18; TEMP 36.1; O2SAT 98
[2022-11-17] MEDS: Metoprolol Tartrate 25 MG TABLET PO (07:33)
[2022-11-17] MEDS: ondansetron HCL 4 MG/2 ML VIAL IVPUSH (07:33)
[2022-11-17] MEDS: Clotrimazole 1 % Cream 15 GM TUBE 1 APPL TOPICAL (07:33)
[2022-11-17] MEDS: Famotidine/PF 20 MG/2 ML VIAL IVPUSH (07:33)
--- NOTE | 2022-11-17 08:58 | MHC.CM.PN ---
pt is independent working no servcies are needed home is dc plan
--- NOTE | 2022-11-17 12:43 | HO.POSTANES ---
Post Anesthesia Evaluation Post Anesthesia Evaluation Vital Signs: Vital Signs Temp Pulse Resp BP Pulse Ox O2 Del Method 11/17/22 07:30 96.9 F 80 18 100/60 98 Room Air 11/17/22 03:29 96.8 F 89 16 118/72 98 Room Air Anesthesia: General Endotracheal-GETA Mental Status: Awake Pain Control: Satisfactory Nausea/Vomiting: None Hydration: Adequate Anesthesia-Related Issues: No Anes. Related Issues
== END 2022-11-17 10:24 | disposition home or self-care (01) | DRG 620 ==
LOC: HO.SSSA 11:55 → HO.S3 15:17
PROVIDERS: Physician Assistant; Physician Assistant Surgical; Admitting Provider Surgery; PCP Internal Medicine; Visit Provider Surgery
PROC: 0DB64Z3 Excision of Stomach, Percutaneous Endoscopic Approach, Vertical (ICD-10-PCS; CPT 43845; principal; 2022-11-16 11:50)
DX: E66.01 Morbid (severe) obesity due to excess calories (principal); Q43.3 Congenital malformations of intestinal fixation; D17.71 Benign lipomatous neoplasm of kidney; I51.7 Cardiomegaly; E78.5 Hyperlipidemia, unspecified; I48.91 Unspecified atrial fibrillation; K76.0 Fatty (change of) liver, not elsewhere classified; G47.33 Obstructive sleep apnea (adult) (pediatric); Z20.822 Contact with and (suspected) exposure to COVID-19; Z68.42 Body mass index [BMI] 45.0-49.9, adult; Z87.891 Personal history of nicotine dependence; Z79.02 Long term (current) use of antithrombotics/antiplatelets; Z79.899 Other long term (current) drug therapy
CPT/HCPCS: 36415; 80048; 80053; 80061; 83036; 83525; 84443; 85014; 85018; 85025; 85610; 85730; 86140; 86850; 86900; 86901; 87635; 88307; 88342; A4649; C9088; C9145; J0131; J0690; J1100; J2250; J2370; J2405; J2795; J3010

== ENCOUNTER → 2022-11-23 10:33 | Outpatient (BNVA) | payer OTHER, SELFPAY | PROVIDERS: PCP Internal Medicine; Visit Provider Physician Assistant Surgical | DX: Z13.89 Encounter for screening for other disorder (principal) ==

== ENCOUNTER → 2022-12-10 14:27 | Outpatient (BNVA) | payer OTHER, SELFPAY | PROVIDERS: PCP Internal Medicine; Visit Provider Physician Assistant ==

== ENCOUNTER 2023-02-09 10:30 | Outpatient (AMB) | payer OTHER, SELFPAY ==
--- NOTE | 2023-02-09 10:38 | MHC.AMNUTRGE ---
Intake VS Expanded 02/09/23 10:42 Height 5 ft 1 in Weight 216 lb BMI 40.8 Intake Visit Reasons: VIDEO PO LSG 11/16/22 Allergies No Known Allergies Allergy (Verified 12/10/22 14:35) HPI Nutrition Presentation Details LSG DOS 11/16/22 Preop weight?257# Last weight (12/10/22) 233# Current weight at 12 weeks postop 216# Patient has not been seen in 2 months, has had several appointment cancellations per patient request. Reason for consult elevated BMI Diet Assmnt Details Twelve weeks postop. Pt reports she does not want to do the protein shakes , she thinks the artificial sweeteners in them make her vomit. Indonesian yogurt with blueberries lunch: protein bar or skips dinner: chicken, tuna, and veg - unknown portions corn and chicken Has a cupcake for her birthday. Over the weekend, for birthday had lobster, steamers Patient is eating and drinking at the same time, she was not sure of the rationale why she needed to separate food and drink. Patient is taking longer than 30 minutes per meal. We discussed how this leads to overeating. Hydration: water with lemon. no coffee Exercise: no time to discuss Vitamins: taking a generic vitamins from [employer]. She tried celebrate multivitamin but took with just water no food and was very sick. Dietary counseling reduction Diagnosis Nutrition problem #1 overweight/obesity As related to (etiology) #1 excess energy intake and physical inactivity As evidenced by (sign/symptom) #1 high BMI Monitoring/Goals Nutrition problem monitoring total energy intake, level of knowledge/skill, total PRO intake, total CHO intake, weight and oral fluids Learning/Education Readiness to learn fair Most Recent Diabetes Results: Cholesterol 139 mg/dL 11/12/22 HDL Cholesterol 30 mg/dL 11/12/22 Triglycerides 81 mg/dL 11/12/22 Creatinine 0.77 mg/dL (0.5-1.4) 11/17/22 Blood Urea Nitrogen 17 mg/dL (9-16) H 11/17/22 Sodium 141 mmol/L (135-145) 11/17/22 Potassium 4.3 mmol/L (3.3-5.1) 11/17/22 Chloride 109 mmol/L (96-108) H 11/17/22 Carbon Dioxide 20 mmol/L (22-29) L 11/17/22 Calcium 8.7 mg/dL (8.4-10.2) 11/17/22 AST 24 U/L (5-31) 11/12/22 ALT 26 U/L (0-31) 11/12/22 Total Protein 6.7 g/dL (6.5-8.0) 11/12/22 Albumin 4.0 g/dL (3.5-5.0) 11/12/22 [facility] Medical History (Updated 11/16/22 @ 14:50 by Simon Flannery MD) Abnormal EKG Atrial fibrillation Dilation of thoracic aorta Fatty liver Hyperlipidemia On beta julia at home ANALI on CPAP Surgical History History of carpal tunnel release of both wrists History of lumpectomy of right breast Hx of section Hx of colonoscopy Hx of tooth extraction Family History Mother No problems noted. Father Pacemaker Son No problems noted. Social History Household Members: Significant Other Housing: House Are you a primary daycare manager to a significant other at home: No Do you presently have visiting nurse or other home services: No Alcohol intake: never Patient Tobacco Use Status: Former Tobacco user Quit Date: teenager Tobacco use type: Cigarette service: No Assessment & Plan Assessment & Plan (1) Morbid obesity: Code(s): E66.01 - Morbid (severe) obesity due to excess calories Patient Instructions: Explained the importance of getting adequate protein. Also educated on postop nutrition guidelines including solids and liquids, 20-30 minutes per meal. Provided educational via text message. Recommended the following meal plan changes Try smoothie - 1 serving of fruit (berries), 1 serving of isopure flavored protein powder. Switch back to celebrate bariatric multivitamin - take with food or open contents and smoothie. Can continue with 2 meals protein and vegetable, unable to obtain portions at this appointment. Patient would like to follow-up with Valentina corona for next appointment. Also recommended she come into the office for a weight check to monitor body composition. Patient is welcome to schedule follow-up appointment with me as desired Telehealth Telehealth Location of provider rendering services: practice address Location of patient: address on file Patient Identification confirmed using: Name, : Yes Telehealth method: video Patient verbally consented to treatment: Yes Patient verbally consented to billing insurance company: Yes Patient informed of any privacy concerns related to visit: Yes Minutes spent on Phone/Video with Pt.: 30 Coding Level of Care Code Nutr Indiv Subseq ([id number]) Diagnoses Morbid obesity E66.01 Time Spent (min) 30
[2023-02-09 10:42] VITALS: BMI 40.8
== END 2023-02-09 13:24 | disposition home or self-care (01) ==
LOC: HO.HBS 12:14
PROVIDERS: PCP Internal Medicine; Visit Provider Dietitian, Registered
DX: E66.01 Morbid (severe) obesity due to excess calories (principal)

== ENCOUNTER → 2023-02-09 10:30 | Outpatient (BNVA) | payer OTHER, SELFPAY | PROVIDERS: PCP Internal Medicine; Visit Provider Dietitian, Registered | DX: E66.01 Morbid (severe) obesity due to excess calories (principal); Z71.3 Dietary counseling and surveillance; Z68.41 Body mass index [BMI] 40.0-44.9, adult | CPT/HCPCS: 97803 ==